=== PATIENT | female | born 1965 | race Caucasian/White ===

== ENCOUNTER 2020-07-08 20:09 | Emergency (ER) | payer BC, MEDICARE ==
[2020-07-08] MEDS ORDERED: Morphine 4 MG/ML VIAL IM ONE (20:32)
--- NOTE | 2020-07-08 20:46 | EDM.PDOC ---
ED HPI GENERAL MEDICAL PROBLEM - General Chief Complaint: Upper Extremity Injury/Pain Stated Complaint: L ARM INJURY Time Seen by Provider: 07/08/20 20:15 Source of Information: Reports: Patient, Family History Limitations: Reports: No Limitations - History of Present Illness INITIAL COMMENTS - FREE TEXT/NARRATIVE: Fell in the bathroom and injured her left arm tripped forward in bathroom and fell forward , hitting her head and injuring the left elbow States she has pain in the left elbow Not able to move the arm because of the pain has pain in the left neck area and upper left shoulder denies any numbness or tingling Has localized pain in the anterior left shoulder Onset: Today Onset Date: 07/08/20 Duration: Getting Worse Location: Reports: Head, Neck, Upper Extremity, Left Quality: Reports: Ache, Dull Severity: Moderate Improves with: Reports: Immobilization Worsens with: Reports: Movement Context: Reports: Trauma (fell) Associated Symptoms: Reports: No Other Symptoms Treatments 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: Splint(s) Left Elbow Pain Score (Numeric/FACES): 10 - Related Data Allergies Allergy/AdvReac Type Severity Reaction Status Date / Time iodine Allergy Rash Verified 07/08/20 20:58 Penicillins Allergy Rash Verified 07/08/20 20:58 Home Meds: Home Meds Albuterol [Ventolin HFA] 2 puff INH ASDIRECTED PRN 07/08/20 [History] Aspirin [Halfprin] 81 mg PO DAILY 07/08/20 [History] Citalopram [Citalopram HBr] 20 mg PO DAILY 07/08/20 [History] Dapagliflozin Propanediol [Farxiga] 10 mg PO DAILY 07/08/20 [History] Digoxin 125 mcg PO DAILY 07/08/20 [History] Furosemide 40 mg PO DAILY 07/08/20 [History] Insulin Degludec [Tresiba Flextouch U-100] 50 unit SQ DAILY 07/08/20 [History] Metoprolol Succinate 100 mg PO DAILY 07/08/20 [History] metFORMIN [Glucophage] 1,000 mg PO BIDMEALS 07/08/20 [History] Past Medical History Cardiovascular History: Reports: Arrhythmia, Heart Failure, Hypertension, Pacemaker Respiratory History: Reports: Sleep Apnea Psychiatric History: Reports: Addiction - Past Surgical History Cardiovascular Surgical History: Reports: Cardiac Ablation, Pacer, Other (See Below) Other Cardiovascular Surgeries/Procedures: defib Review of Systems - Review of Systems Review Of Systems: See Below Constitutional: Reports: No Symptoms Eyes: Reports: No Symptoms Ears: Reports: No Symptoms Nose: Reports: No Symptoms Mouth/Throat: Reports: No Symptoms Respiratory: Reports: No Symptoms Cardiovascular: Reports: No Symptoms GI/Abdominal: Reports: No Symptoms Musculoskeletal: Reports: Neck Pain, Shoulder Pain, Arm Pain Skin: Reports: No Symptoms Neurological: Denies: Confusion, Headache, Numbness, Paresthesia Psychiatric: Reports: No Symptoms ED EXAM, GENERAL - Physical Exam Exam: See Below Exam Limited By: No Limitations General Appearance: Alert, WD/WN, No Apparent Distress, Anxious, Mild Distress (from pain in the right elbow) Eye Exam: Bilateral Eye: EOMI Ears: Normal External Exam Ear Exam: Bilateral Ear: Canal Normal Nose: Normal Inspection Throat/Mouth: Normal Inspection, Normal Oropharynx Head: Atraumatic, Normocephalic Neck: Supple, Non-Tender Respiratory/Chest: No Respiratory Distress, Lungs Clear Cardiovascular: Normal Peripheral Pulses, Regular Rate, Rhythm GI/Abdominal: Soft, Non-Tender Back Exam: Normal Inspection, Full Range of Motion Extremities: Joint Swelling, Arm Pain, Limited Range of Motion (left elbow , deformed) Neurological: Alert, Oriented, CN II-XII Intact, Normal Cognition Psychiatric: Normal Affect, Normal Mood Skin Exam: Warm, Dry, Intact Lymphatic: No Adenopathy Course - Vital Signs Last Recorded V/S: Last Vital Signs Temp 35.9 C L 07/08/20 20:10 Pulse 74 07/08/20 22:00 Resp 18 07/08/20 22:00 BP 102/60 07/08/20 22:00 Pulse Ox 95 07/08/20 22:00 - Orders/Labs/Meds Orders: Active Orders 24 hr Category Date Time Status Cervical Spine wo Cont [CT] Stat Exams 07/08/20 21:22 Taken Elbow 2V Lt [CR] Stat Exams 07/08/20 20:14 Taken Head wo Cont [CT] Stat Exams 07/08/20 21:22 Ordered Humerus Lt [CR] Stat Exams 07/08/20 20:14 Taken Shoulder Comp Lt [CR] Stat Exams 07/08/20 20:30 Taken Meds: Medications Discontinued Medications Generic Name Dose Route Start Last Admin Trade Name Freq PRN Reason Stop Dose Admin Hydromorphone HCl 1 mg 07/08/20 21:11 07/08/20 21:20 Hydromorphone 2 Mg/Ml Sdv IVPUSH 07/08/20 21:12 1 mg ONETIME ONE Administration Morphine Sulfate 4 mg 07/08/20 20:32 07/08/20 20:51 Morphine 4 Mg/Ml Vial IM 07/08/20 20:33 4 mg ONETIME ONE Administration Sodium Chloride 10 ml 07/08/20 21:20 07/08/20 21:25 Sodium Chloride 0.9% 10 Ml Syringe FLUSH 10 ml ASDIRECTED PRN Administration Keep Vein Open - Re-Assessments/Exams Free Text/Narrative Re-Assessment/Exam: 07/08/20 21:46 pt had sling applied with cold compress then had Xray done Given morphine, stated it did not help with pain then pt had to be given dilaudid pt then indicated she hit her head , unsure of LOC , also still complaining of pain to the left side of the neck and left upper shoulder Xray reviewed showed dislocation Called made to [facility] : pt was [facility] by [facility] , Pt will be transported to the ER in [facility] for further management CT head and cervical spine was obtained before transfer Departure - Departure Time of Disposition: 22:00 Disposition: DC/Tfer to Acute Hospital 02 Condition: Fair Clinical Impression: Fall as cause of accidental injury at home as place of occurrence, Dislocation of elbow, posterior, left, closed, Neck pain on left side - Discharge Information *PRESCRIPTION DRUG MONITORING PROGRAM REVIEWED*: Not Applicable *COPY OF PRESCRIPTION DRUG MONITORING REPORT IN PATIENT CEASAR: Not Applicable Referrals: Jory Magallon PA [Primary Care Provider] - Forms: ED Department Discharge Sepsis Event Note (ED) - Focused Exam Vital Signs: Vital Signs Temp Pulse Resp BP Pulse Ox 07/08/20 22:00 74 18 102/60 95 07/08/20 20:10 35.9 C L 96 16 125/77 96 - My Orders Last 24 Hours: My Active Orders 07/08/20 20:14 Elbow 2V Lt [CR] Stat Humerus Lt [CR] Stat 07/08/20 20:30 Shoulder Comp Lt [CR] Stat 07/08/20 21:22 Cervical Spine wo Cont [CT] Stat Head wo Cont [CT] Stat - Assessment/Plan Last 24 Hours: My Active Orders 07/08/20 20:14 Elbow 2V Lt [CR] Stat Humerus Lt [CR] Stat 07/08/20 20:30 Shoulder Comp Lt [CR] Stat 07/08/20 21:22 Cervical Spine wo Cont [CT] Stat Head wo Cont [CT] Stat
[2020-07-08] MEDS ORDERED: HYDROmorphone 2 MG/ML SDV IVPUSH ONE (21:11)
[2020-07-08] MEDS: Sodium Chloride 0.9% 10 ML Syringe FLUSH PRN ×2 (21:20→21:25)
== END 2020-07-08 22:15 ==
LOC: FB.ED 20:09
DX: S53.125A Posterior dislocation of left ulnohumeral joint, initial encounter (principal); M54.2 Cervicalgia; I11.0 Hypertensive heart disease with heart failure; I50.9 Heart failure, unspecified; Z91.048 Other nonmedicinal substance allergy status; Z88.0 Allergy status to penicillin; Z79.82 Long term (current) use of aspirin; Z79.899 Other long term (current) drug therapy; W01.0XXA Fall on same level from slipping, tripping and stumbling without subsequent striking against object, initial encounter; Y92.009 Unspecified place in unspecified non-institutional (private) residence as the place of occurrence of the external cause
CPT/HCPCS: 70450; 72125; 73030-LT; 73060-LT; 73070-LT; 96372; 96374; 99285-25; J1170; J2270